=== PATIENT | male | born 1955 ===

== ENCOUNTER 2025-04-01 15:32 | Outpatient (RCR) | payer MEDICARE, SELFPAY ==
[2025-04-01 16:33] LABS: ALT 26 U/L (16-63); AST 22 U/L (15-37); Abs Immature Grans 0.03 10^3/uL (0.0-0.06); Albumin 3.7 g/dL (3.4-5.0); Alkaline Phosphatase 80 U/L (46-116); Anion Gap 9.1 mmol/L (3-11); BUN 6 mg/dL (7-18); Bilirubin, Total 0.5 mg/dL (0.2-1.0); CO2 27.9 mmol/L (21.0-32.0); Calcium 9.5 mg/dL (8.5-10.1); Chloride 98 mmol/L (98-107); Glucose 160 mg/dL (74-106); HCT 34.6 % (40.0-50.0); HGB 11.1 g/dL (13.5-17.5); Immature Grans % 0.3 %; MCH 24.9 pg (27.0-33.0); MCHC 32.1 % (32.0-36.0); MCV 78 fL (80-95); MPV 9.5 fL (8.0-11.0); Platelet Count 318 10^3/uL (130-400); Potassium 4.0 mmol/L (3.5-5.1); RBC 4.46 10^6/uL (4.36-5.78); RDW 16.6 % (11.8-14.1); RDW-SD 46.9 fL; Sodium 135 mmol/L (136-145); TSH 1.43 uIU/mL (0.36-3.74); Total Protein 7.6 g/dL (6.4-8.2); WBC 9.34 10^3/uL (4.4-10.8)
== END 2025-04-09 23:59 | disposition home or self-care (01) ==
LOC: INF 15:32
PROVIDERS: PCP Nurse Practitioner Primary Care; Visit Provider Internal Medicine Hematology
DX: C76.0 Malignant neoplasm of head, face and neck (principal); E46 Unspecified protein-calorie malnutrition; Z45.2 Encounter for adjustment and management of vascular access device
CPT/HCPCS: 36591; 80053; 84439; 84443; 85025

== ENCOUNTER 2025-05-06 00:22 | Outpatient (RCR) | payer MEDICARE, SELFPAY ==
[2025-04-29] MEDS: Normal Saline Flush 10 ML SYR IVP (08:47)
[2025-04-29 09:24] LABS: Abs Immature Grans 0.14 10^3/uL (0.0-0.06); HCT 31.6 % (40.0-50.0); HGB 10.3 g/dL (13.5-17.5); Immature Grans % 1.3 %; MCH 26.6 pg (27.0-33.0); MCHC 32.6 % (32.0-36.0); MCV 82 fL (80-95); MPV 9.4 fL (8.0-11.0); Platelet Count 334 10^3/uL (130-400); RBC 3.87 10^6/uL (4.36-5.78); RDW 20.5 % (11.8-14.1); RDW-SD 59.0 fL; WBC 10.51 10^3/uL (4.4-10.8)
[2025-04-29 09:57] LABS: ALT 30 U/L (16-63); AST 31 U/L (15-37); Albumin 3.2 g/dL (3.4-5.0); Alkaline Phosphatase 110 U/L (46-116); Anion Gap 7.2 mmol/L (3-11); BUN 16 mg/dL (7-18); Bilirubin, Total 0.3 mg/dL (0.2-1.0); CO2 30.8 mmol/L (21.0-32.0); Calcium 8.5 mg/dL (8.5-10.1); Chloride 100 mmol/L (98-107); Estimated GFR 95.21 (mL/min/1.73m2); Glucose 123 mg/dL (74-106); Potassium 4.0 mmol/L (3.5-5.1); Sodium 138 mmol/L (136-145); TSH 1.16 uIU/mL (0.36-3.74); Total Protein 6.9 g/dL (6.4-8.2)
[2025-04-29 10:19] LABS: Anisocytosis 2+; Microcytosis 1+
== END 2025-05-10 23:59 | disposition home or self-care (01) ==
LOC: INF 00:22
PROVIDERS: PCP Nurse Practitioner Primary Care; Visit Provider Internal Medicine Hematology
DX: C76.0 Malignant neoplasm of head, face and neck (principal); E46 Unspecified protein-calorie malnutrition; Z45.2 Encounter for adjustment and management of vascular access device
CPT/HCPCS: 36591; 80053; 84439; 84443; 85025

== ENCOUNTER 2025-05-20 03:05 | Outpatient (RCR) | payer MEDICARE, SELFPAY ==
[2025-05-20 08:46] LABS: Abs Immature Grans 0.11 10^3/uL (0.0-0.06); HCT 34.4 % (40.0-50.0); HGB 11.4 g/dL (13.5-17.5); Immature Grans % 1.0 %; MCH 28.4 pg (27.0-33.0); MCHC 33.1 % (32.0-36.0); MCV 86 fL (80-95); MPV 9.6 fL (8.0-11.0); Platelet Count 270 10^3/uL (130-400); RBC 4.02 10^6/uL (4.36-5.78); RDW 22.1 % (11.8-14.1); RDW-SD 67.2 fL; WBC 10.82 10^3/uL (4.4-10.8)
[2025-05-20] MEDS: Normal Saline Flush 10 ML SYR IVP (08:50)
[2025-05-20 09:13] LABS: Anisocytosis 2+
[2025-05-20 09:14] LABS: ALT 70 U/L (16-63); AST 73 U/L (15-37); Albumin 3.2 g/dL (3.4-5.0); Alkaline Phosphatase 275 U/L (46-116); Anion Gap 7.9 mmol/L (3-11); BUN 12 mg/dL (7-18); Bilirubin, Total 0.5 mg/dL (0.2-1.0); CO2 29.1 mmol/L (21.0-32.0); Calcium 8.1 mg/dL (8.5-10.1); Chloride 99 mmol/L (98-107); Estimated GFR 99.12 (mL/min/1.73m2); Glucose 115 mg/dL (74-106); Potassium 3.7 mmol/L (3.5-5.1); Sodium 136 mmol/L (136-145); TSH 4.82 uIU/mL (0.36-3.74); Total Protein 7.1 g/dL (6.4-8.2)
== END 2025-06-09 23:59 | disposition home or self-care (01) ==
LOC: INF 03:05
PROVIDERS: PCP Nurse Practitioner Primary Care; Visit Provider Internal Medicine Hematology
DX: C76.0 Malignant neoplasm of head, face and neck (principal); E46 Unspecified protein-calorie malnutrition; Z45.2 Encounter for adjustment and management of vascular access device
CPT/HCPCS: 36591; 80053; 84439; 84443; 85025

== ENCOUNTER 2025-06-10 03:26 | Outpatient (RCR) | payer MEDICARE, SELFPAY ==
[2025-06-10] MEDS: Normal Saline Flush 10 ML SYR IVP (08:42)
[2025-06-10 08:52] LABS: Abs Immature Grans 0.14 10^3/uL (0.0-0.06); HCT 33.2 % (40.0-50.0); HGB 10.9 g/dL (13.5-17.5); Immature Grans % 1.0 %; MCH 29.9 pg (27.0-33.0); MCHC 32.8 % (32.0-36.0); MCV 91 fL (80-95); MPV 10.1 fL (8.0-11.0); Platelet Count 212 10^3/uL (130-400); RBC 3.64 10^6/uL (4.36-5.78); WBC 13.69 10^3/uL (4.4-10.8)
[2025-06-10 09:17] LABS: TSH 2.40 uIU/mL (0.55-4.78)
[2025-06-10 09:20] LABS: ALT 57 U/L (10-49); AST 82 U/L (<34); Albumin 3.7 g/dL (3.2-5.0); Alkaline Phosphatase 328 U/L (46-116); Anion Gap 7.3 mmol/L (3-11); BUN 9 mg/dL (9-23); Bilirubin, Total 0.60 mg/dL (0.2-1.2); CO2 29.7 mmol/L (20.0-31.0); Calcium 8.6 mg/dL (8.3-10.6); Chloride 103 mmol/L (98-107); Glucose 113 mg/dL (74-106); Potassium 4.1 mmol/L (3.5-5.1); Sodium 140 mmol/L (136-145); Total Protein 6.6 g/dL (5.7-8.2)
[2025-06-10 09:25] LABS: Anisocytosis 2+; Macrocytosis 1+; Microcytosis 2+
== END 2025-07-10 23:59 | disposition home or self-care (01) ==
LOC: INF 03:26
PROVIDERS: PCP Nurse Practitioner Primary Care; Visit Provider Internal Medicine Hematology
DX: C76.0 Malignant neoplasm of head, face and neck (principal); E46 Unspecified protein-calorie malnutrition; Z45.2 Encounter for adjustment and management of vascular access device
CPT/HCPCS: 36591; 80053; 84439; 84443; 85025